=== PATIENT | female | born 1980 | race Two or more races ===

== ENCOUNTER → 2024-11-16 | Outpatient (CLI) | payer OTHER, SELFPAY | END | disposition home or self-care (01) | LOC: SLDO 14:47 | PROVIDERS: PCP Nurse Practitioner Family; Referring Provider Nurse Practitioner Family; Visit Provider Nurse Practitioner Family | DX: N30.00 Acute cystitis without hematuria (principal) | CPT/HCPCS: 87086 ==

== ENCOUNTER 2025-04-17 07:50 | Day surgery (SDC) | payer OTHER, BC, SELFPAY ==
[2025-04-16 08:11] VITALS: BMI 25.0
[2025-04-16 08:57] LABS: Basophils # (Auto) 0.0 Thou/mm3 (0.0-0.2); Basophils % (Auto) 1 % (0-2.5); Eosinophils # (Auto) 0.1 Thou/mm3 (0.0-0.5); Eosinophils % (Auto) 2 % (0-10); Hematocrit 41.4 % (36.0-46.0); Hemoglobin 13.5 g/dL (12.0-16.0); Immature Granulocytes Auto 0.01 Thou/mm3 (0.00-0.00); Lymphocytes # (Auto) 1.7 Thou/mm3 (1.0-4.8); Lymphocytes % (Auto) 35 % (10-50); Mean Corpuscular HGB Conc 32.6 g/dl (31.0-37.0); Mean Corpuscular Hemoglobin 30.8 pg (25.0-35.0); Mean Corpuscular Volume 94 fL (80-100); Monocytes # (Auto) 0.3 Thou/mm3 (0.0-0.8); Monocytes % (Auto) 7 % (0-12); Neutrophils # (Auto) 2.8 Thou/mm3 (1.8-7.7); Neutrophils % (Auto) 55 % (37-80); Nucleated Red Blood Cell # 0.00 Thou/mm3 (0.00-0.00); Nucleated Red Blood Cell % 0 /100 WBC (0); Platelet Count 326 Thou/mm3 (140-440); RDW Standard Deviation 40.2 fL (36.4-46.3); Red Blood Count 4.39 Miln/mm3 (4.00-5.20); White Blood Count 5.0 Thou/mm3 (3.6-11.0)
[2025-04-16 09:19] LABS: Anion Gap 8 (7-16); BUN/Creatinine Ratio 15 Ratio (12-20); Blood Urea Nitrogen 9 mg/dL (9-23); Calcium 9.6 mg/dL (8.3-10.6); Carbon Dioxide 29.5 mMol/L (20.0-31.0); Chloride 105 mMol/L (98-107); Creatinine (Component) 0.6 mg/dL (0.6-1.3); Estimated Creatinine Clearance 112.0 mL/min (>60); Glucose 95 mg/dL (74-106); Osmolality,Calculated 281 (275-295); Potassium 4.0 mMol/L (3.4-5.1); Sodium 142 mMol/L (136-145); eGFR > 60 See Note
[2025-04-17] VITALS (7 sets, daily range): BP systolic 100–117; BP diastolic 51–80; PULSE 65–81; RESP 14–20; TEMP 36.3–36.6; O2SAT 98–100; BMI 25.2
--- NOTE | 2025-04-17 10:34 | SUR.PHASEI ---
pt received from OR in recovery bay 3. pt obtunded, breathing unlabored on oxymask 6l, lma in place. v/s stable. pt dressing to left back cdi. report received from Dr. Loza and Alice Palacios.
--- NOTE | 2025-04-17 10:42 | ESOP_ITS ---
Date of Procedure 04/17/25 Pre Op Diagnosis Left upper back soft tissue mass Post Op Diagnosis Left upper back intramuscular soft tissue mass Procedure Excision of intramuscular soft tissue mass on left upper back Findings An approximately 8 cm lipomatous intramuscular soft tissue mass of left upper back Procedure Description Patient brought into the operating room in supine position. After administration of general endotracheal anesthesia, patient was placed in right lateral decubitus position. Her left upper back prepped and draped in standard surgical manner. After administration of local anesthesia an approximately 10 cm elliptical incision was made and dissection was deepened into soft tissue. The mass was palpated noted to be subfascial and intramuscular. The fascia was divided. The mass was circumferentially dissected off underlying muscle and excised. The mass was measuring to be approximately 8 cm in diameter, li pomatous in nature. The wound was washed and irrigated and hemostasis achieved using electrocautery. Fascia reapproximated with interrupted sutures using 2-0 Vicryl. Subcutaneous tissue closed with interrupted sutures using 2-0 Vicryl and the incision was closed with 4-0 Monocryl in subcuticular fashion. Dermabond and sterile pressure dressings applied. Patient tolerated the procedure well. She was placed in supine position and extubated. She was breathing spontaneously without difficulty and was transferred to postanesthesia care in stable condition. Instruments, needles and sponge counts were reported to be correct x 2. Anesthesia GETA and local Pathology / specimen Other (Left upper back soft tissue mass) Estimated Blood Loss 10 Condition Stable Disposition PACU Surgeon Jeffry Martinez MD Surgical Staff Operation Date: 04/17/25 10:00 Case Staff Anesthesiologist: Jass Loza RN First Assistant: Jumana Flowesr
--- NOTE | 2025-04-17 11:06 | SUR.PHASEII ---
pt able to tolerate oral fluids without difficulty swallowing or nausea/vomiting.
--- NOTE | 2025-04-17 11:38 | SUR.PHASEII ---
pt awake and alert, breathing unlabored on room air. v/s stable. pt dressing to left back cdi. pt able to ambulate to wheelchair with steady gait. d/c instructions given with Jeff in room, all questions answered. pt d/c via wheelchair with all belongings.
== END 2025-04-17 11:38 | disposition home or self-care (01) ==
PROVIDERS: PCP Family Medicine; Referring Provider Surgery; Visit Provider Surgery
PROC: (CPT 21933; principal; 2025-04-17 10:00)
DX: D17.9 Benign lipomatous neoplasm, unspecified (principal)
CPT/HCPCS: 21933; 36415; 80048; 85025; A4649; J0131; J0690; J1100; J1885; J2250; J2405; J2704; J3010; J3490